=== PATIENT | male | born 1950 | race Caucasian/White ===

== ENCOUNTER 2018-09-22 15:10 | Emergency (ER) | payer MEDICARE, BC ==
[2018-09-22 15:24] VITALS: BP 130/86
--- NOTE | 2018-09-22 15:59 | UC ---
Cardiac HPI - HPI Summary HPI Summary: 67 yo male with exertional CP x three in past 24 hours episodes occurred while mowing SSCP is described and burning associated with diaphoresis and shortness of breath resolved with going inside and laying down all spisodes 15-20 minutes - History of Current Complaint Chief Complaint: UCGeneralIllness Stated Complaint: CHEST COMPLAINT Time Seen by Provider: 09/22/18 15:48 Hx Obtained From: Patient Onset/Duration: Sudden Onset, Lasting Minutes Timing: Constant Initial Severity: Moderate Current Severity: None Pain Intensity: 0 Chest Pain Location: Diffuse - anterior lower chest Character: Burning Aggravating Factor(s): Exertion Alleviating Factor(s): Rest Associated Signs & Symptoms: Positive: SOB, Diaphoresis - Allergy/Home Medications Allergies/Adverse Reactions: Allergies Allergy/AdvReac Type Severity Reaction Status Date / Time No Known Allergies Allergy Verified 09/22/18 15:16 PMH/Surg Hx/FS Hx/Imm Hx Previously Healthy: Yes Cardiovascular History: Hypertension - Surgical History Surgical History: Yes Surgery Procedure, Year, and Place: appendectomy. right eye repair (from an injury). right rotator cuff repair. left knee repair - Family History Known Family History: Positive: Hypertension - Social History Alcohol Use: None Substance Use Type: None Smoking Status (MU): Never Smoked Tobacco Have You Smoked in the Last Year: No Review of Systems All Other Systems Reviewed And Are Negative: Yes Constitutional: Positive: Negative Skin: Positive: Negative Eyes: Positive: Negative ENT: Positive: Negative Respiratory: Positive: Negative - SOB resolved Cardiovascular: Positive: Negative - CP resolved Gastrointestinal: Positive: Negative Genitourinary: Positive: Negative Motor: Positive: Negative Neurovascular: Positive: Negative Musculoskeletal: Positive: Negative Neurological: Positive: Negative Psychological: Positive: Negative Physical Exam Triage Information Reviewed: Yes Appearance: Well-Appearing, No Pain Distress, Well-Nourished Vital Signs: Initial Vital Signs Temp 96.4 F 09/22/18 15:17 Pulse 46 09/22/18 15:17 Resp 16 09/22/18 15:17 BP 130/86 09/22/18 15:17 Pulse Ox 100 09/22/18 15:17 Vital Signs Reviewed: Yes Eyes: Positive: Conjunctiva Clear ENT: Positive: Pharynx normal. Negative: Nasal congestion, Nasal drainage, Trismus, Muffled voice, Hoarse voice Neck: Positive: Supple, Nontender, No Lymphadenopathy Respiratory: Positive: Lungs clear, Normal breath sounds, No respiratory distress, No accessory muscle use Cardiovascular: Positive: RRR, No Murmur Abdomen Description: Positive: Nontender, No Organomegaly, Soft. Negative: CVA Tenderness (R), CVA Tenderness (L) Musculoskeletal: Positive: ROM Intact, No Edema Neurological: Positive: Alert Psychological Exam: Normal Skin Exam: Normal Diagnostics - EKG Cardiac Rate: Bradycardia Cardiac Rhythm: Sinus: Normal Ectopy: None ST Segment: Non-Specific - Assessment/Plan Course Of Treatment: d/w Mariangel [facility] [employer] [facility] to [facility] [place] via POV suspect new onset angina - Clinical Impression Provider Diagnosis: Chest pain of uncertain etiology Discharge - Sign-Out/Discharge Documenting (check all that apply): Patient Departure All imaging exams completed and their final reports reviewed: No Studies - Discharge Plan Condition: Stable Disposition: HOME-RECOMMEND TO ED Referrals: Stephen Torres MD [Primary Care Provider] - Additional Instructions: Please go directly to [facility] for evaluation of your exertional chest pain They are expecting you you had 324 mg of aspirin here - Billing Disposition and Condition Condition: STABLE Disposition: Home-Recommend to ED
[2018-09-22] MEDS ORDERED: Aspirin 81 mg CHEW TAB* 81 MG TAB.CHEW PO ONE (16:00)
== END 2018-09-22 16:12 | disposition home health service (06) ==
LOC: UCCORT 15:10
DX: R07.9 Chest pain, unspecified (principal); I10 Essential (primary) hypertension
CPT/HCPCS: 93005; 99212; A9270-GY; G0463